=== PATIENT | male | born 1955 | race Hispanic/Latino ===

== ENCOUNTER → 2017-03-31 | Day surgery (SDC) | payer MEDICARE, MEDICAID ==
[~2017-03-31] MED LIST: Bupivacaine 0.5% Inj(30mL) ONE; Bupivacaine-Epi 0.25%-1:200,000 PF Inj ONE; HYDROmorphone 0.5 mg/0.5 ml ISec IVP PRN; Lactated Ringer's 1,000 ML IV ONE; Lidocaine 1% Inj (20ml) ONE; Lidocaine Hydrochloride 5 ML INJ ONE; Morphine 4 MG/ML VIAL ONE; Neostigmine Methylsulfate 3mg/3ml Syringe IV ONE; Propofol 10 mg/ml Inj (20 ML) ONE; Rocuronium 10 mg/ml (5 ml) ONE; Sodium Chloride 0.9% 0 ML IV ONE; ceFAZolin IV 2 gm in Dextrose 1 GM/50 ML BAG IVPB ONE
--- NOTE | 2017-03-31 11:54 | PCM.SURG1 ---
Surgeon's Initial Post Op Note - Surgeon's Notes Surgeon: Dr. Pace Race Car Mechanic: Dr. Pam Yanez PGY2 Type of Anesthesia: General Endo Pre-Operative Diagnosis: umbilical hernia, diastasis Operative Findings: see dictation Post-Operative Diagnosis: same Operation Performed: Robotic unbilical hernia and diastasis repair w/ mesh. laparoscopic TAP block Specimen/Specimens Removed: umbilical hernia contents, peritoneal fat Estimated Blood Loss: EBL {In ML}: 5 Blood Products Given: N/A Drains Used: No Drains Post-Op Condition: Good Date of Surgery/Procedure: 03/31/17 Time of Surgery/Procedure: 08:00
[2017-03-31 15:19] VITALS: BP 116/64; PULSE 80; RESP 15; TEMP 97.6; O2SAT 96
--- NOTE | 2017-04-03 02:19 | OP ---
PROCEDURE DATE: 03/31/2017 PREOPERATIVE DIAGNOSES: 1. Umbilical hernia. 2. Diastasis of recti. 3. Morbid obesity. POSTOPERATIVE DIAGNOSES: PROCEDURES DONE: 1. Robotic umbilical hernia repair with a mesh. 2. Robotic repair of diastasis of recti with mesh. 3. Laparoscopic transabdominal peritoneal block bilateral. SURGEON: Luis Eduardo Pace MD ASSISTANTS: NOMAN Dunlap and Jacqueline Orozco, PGY-2 resident. TYPE OF ANESTHESIA: General endotracheal tube anesthesia. ESTIMATED BLOOD LOSS: Around 20 mL. DRAIN: None. PATHOLOGY: 1. Umbilical hernia content and sack was sent to the pathology. 2. Preperitoneal fat from the diastasis was sent to the pathology. COMPLICATIONS: None. INTREOPERATIVE FINDINGS: The patient had approximately 3 x 3 cm umbilical hernia as well as 15 cm long diastasis of recti of approximately 4 cm wide. DESCRIPTION OF PROCEDURE: On intraoperative steps, this is a 61-year-old male was diagnosed with umbilical hernia as well as diastasis recti and the patient was consented for robotic umbilical hernia repair with the mesh as well as robotic diastasis of recti repair, brought to the OR, and placed supine on the operating table. After induction of the anesthesia, the abdomen was prepped and draped in usual sterile fashion. The left upper quadrant incision was made, using visiport technique peritoneal cavity was entered. The Pneumo was created. Another three 8 mm robotic ports were placed in left upper quadrant, left lower quadrant, and left flank and now on the right side two ports were placed of 12 mm as well as 5 mm. Robot was brought in, camera arm as well as arm 1 and arm 2 were docked and first lysis of reduction was done. There was minimal amount of omentum attached and hernial content is therefore reduced back into the peritoneal cavity and it was sent to the table for pathology. Now the diastasis of recti was measured and it was approximately 4 cm wide. The peritoneum and preperitoneal fat was dissected from the diastasis and #1 Prolene V-loc suture was used to repair the umbilical hernia defect in two layer and the diastasis wall also repaired with the plication technique in a two layer and after proper repair of diastasis as well as umbilical hernia, the large 28 x 12 cm mesh was implanted and the mesh was sutured to peritoneum and the part of the mesh was also tacked with a tacker and after proper implantation of the mesh the laparoscopic bilateral transabdominal preperitoneal block was given for the postoperative anesthesia and after that all the ports were taken out under vision and the 12 mm port was closed in two layers, the fascia with a 0 Vicryl interrupted sutures, skin with a 4-0 Monocryl, and at all port sites dry sterile dressing was applied. The patient tolerated the procedure well. Count of the instruments was correct. There was no apparent complication. Luis Eduardo Pace MD MTDD
== END | disposition home or self-care (01) ==
LOC: C.SDS 06:24
PROVIDERS: ATTEND Surgery Surgical Critical Care
DX: K42.9 Umbilical hernia without obstruction or gangrene (principal); E66.01 Morbid (severe) obesity due to excess calories; Q79.59 Other congenital malformations of abdominal wall
CPT/HCPCS: 22999; 49652; 82948; 88302; 88305; J0690; J1170; J1885; J2270; J2405; J2704; J2710; J2765; J3010; J7120; S2900

== ENCOUNTER 2017-07-04 16:59 | Emergency (ER) | payer MEDICARE, MEDICAID ==
[2017-07-04 17:50] VITALS: BMI 32.0
[2017-07-04 17:55] VITALS: BP 130/84; PULSE 82; RESP 18; TEMP 98.5; O2SAT 99
--- NOTE | 2017-07-04 18:47 | C.PDOC ---
History Of Present Illness 62 y/o male c/o cough x 4 days, no chest pain, no fever or chills, no shortness or breath. also c/o itchy throat. Time Seen by Provider: 07/04/17 17:52 Chief Complaint (Nursing): ENT Problem Past Medical History Vital Signs: Last Vital Signs Temp 98.5 F 07/04/17 17:52 Pulse 82 07/04/17 17:52 Resp 18 07/04/17 17:52 BP 130/84 07/04/17 17:52 Pulse Ox 99 07/06/17 10:56 - Medical History PMH: GERD, HTN, Hyperlipidemia, Hypothyroidism Denies: Diabetes, Hepatitis Surgical History: Tonsillectomy Family History: States: Unknown Family Hx - Social History Hx Alcohol Use: No Hx Substance Use: No Physical Exam - Physical Exam Appears: Non-toxic, No Acute Distress Skin: Warm, Dry Head: Atraumatic, Normacephalic Eye(s): bilateral: Normal Inspection Tongue: Normal Appearing Lips: Normal Appearing Gingiva: Normal Appearing Throat: No Erythema, No Exudate Neck: Supple Lymphatic: No Adenopathy Chest: Symmetrical, No Deformity, No Tenderness Cardiovascular: Rhythm Regular, No Murmur Respiratory: No Decreased Breath Sounds, No Accessory Muscle Use, No Rales, Rhonchi (scattered), No Wheezing Neurological/Psych: Oriented x3, Normal Speech, Normal Cognition ED Course And Treatment O2 Sat by Pulse Oximetry: 99 Medical Decision Making Medical Decision Making: pt with cough with white sputum, no acute changes on cxr. d/c with zithromax Disposition Counseled Patient/Family Regarding: Studies Performed, Diagnosis, Need For Followup, Rx Given - Disposition Referrals: Prasanna Diaz MD [Staff Provider] - Disposition: HOME/ ROUTINE Disposition Time: 20:04 Condition: STABLE Additional Instructions: Take antibiotics as prescribed. Follow up with your doctor in a few days. Return to ER for any worse symptoms. Instructions: Acute Bronchitis (ED) Forms: General Discharge Instructions, [facility] (Turkmen) - Clinical Impression Clinical Impression: Bronchitis
[2017-07-04 19:21] LABS: BARBITURATES, UR NEGATIVE (NEGATIVE); BENZODIAZEPINES, UR NEGATIVE (NEGATIVE); OPIATES, UR NEGATIVE (NEGATIVE); PHENCYCLIDINE, UR NEGATIVE (NEGATIVE)
--- NOTE | 2017-07-05 10:09 | RAD ---
HISTORY: cough, rhonchi bilateral bases COMPARISON: Chest radiographs 03/07/2017. TECHNIQUE: Chest PA and lateral FINDINGS: LUNGS: No active pulmonary disease. PLEURA: No significant pleural effusion identified. No pneumothorax apparent. CARDIOVASCULAR: Normal. OSSEOUS STRUCTURES: No significant abnormalities. VISUALIZED UPPER ABDOMEN: Normal. OTHER FINDINGS: None. IMPRESSION: No interval acute cardiopulmonary disease appreciated.
== END 2017-07-04 20:12 | disposition home or self-care (01) ==
LOC: C.ER 16:59
DX: J40 Bronchitis, not specified as acute or chronic (principal)
CPT/HCPCS: 71046; 99283; G0480

== ENCOUNTER 2017-07-05 09:50 | Inpatient (IN) | payer MEDICARE, MEDICAID ==
[2017-07-05 09:50] VITALS: BMI 32.0
[2017-07-05] MEDS ORDERED: cefTRIAXone IV 1 gm in Dextros 50 ML IV ONE (11:27)
--- NOTE | 2017-07-05 11:34 | C.PDOC ---
History Of Present Illness 62 y/o male with PMHx of schizophrenia presents to ED sent by Dr. Diaz for admission for pneumonia. Patient reports coughing with wheezing and states he was recently seen by Dr. Diaz who advised he come to ED for hospital admission. Patient denies fever, chills, chest pain, sob, nausea, abdominal pain or any other complaints at this time. Time Seen by Provider: 07/05/17 10:39 Chief Complaint (Nursing): Medical Clearance History Per: Patient History/Exam Limitations: no limitations Onset/Duration Of Symptoms: Days Current Symptoms Are (Timing): Still Present Reports Recently: Seen In ED Recent travel outside of the [place]: No Additional History Per: Prior Records (caregiver) Past Medical History Reviewed: Historical Data, Nursing Documentation, Vital Signs Vital Signs: Last Vital Signs Temp 98.5 F 07/05/17 10:03 Pulse 83 07/05/17 10:03 Resp 18 07/05/17 10:03 BP 126/75 07/05/17 10:03 Pulse Ox 96 07/05/17 14:14 - Medical History PMH: Benign Prostatic Hyperplasia, GERD, HTN, Hyperlipidemia, Hypothyroidism, Schizophrenia Surgical History: Tonsillectomy Family History: States: No Known Family Hx - Social History Hx Alcohol Use: No Hx Substance Use: No - Immunization History Hx Tetanus Toxoid Vaccination: No Hx Influenza Vaccination: No Hx Pneumococcal Vaccination: No Review Of Systems Constitutional: Negative for: Fever, Chills Cardiovascular: Negative for: Chest Pain Respiratory: Positive for: Cough, Sputum, Wheezing. Negative for: Shortness of Breath Gastrointestinal: Negative for: Nausea, Vomiting Skin: Negative for: Rash Physical Exam - Physical Exam Appears: Non-toxic Skin: Normal Color, Warm, Dry, No Rash Head: Atraumatic, Normacephalic Eye(s): bilateral: Normal Inspection Oral Mucosa: Moist Throat: Normal, No Erythema, No Exudate Neck: Supple Cardiovascular: Rhythm Regular Respiratory: No Rales, Rhonchi (Bilateral), Wheezing Gastrointestinal/Abdominal: Soft, No Tenderness, No Guarding, No Rebound Extremity: No Pedal Edema, Capillary Refill (<2 seconds) Neurological/Psych: Oriented x3 ED Course And Treatment - Laboratory Results Result Diagrams: 07/05/17 11:32 07/05/17 11:32 Lab Interpretation: No Acute Changes ECG: Interpreted By Me ECG Rhythm: Sinus Rhythm Rate From EC O2 Sat by Pulse Oximetry: 96 (RA) Pulse Ox Interpretation: Normal - Radiology CXR: Viewed By Me, Read By Radiologist CXR Interpretation: Yes: Infiltrates Progress Note: Treated with IVF NSS, duoneb x 3 and solumedrol. Treated with zithromax and rocephin IV. Case discussed with Dr Diaz who request admission Reassessment Condition: Improved - Physician Consult Information Physician Contacted: Prasanna Diaz Outcome Of Conversation: admit Medical Decision Making Medical Decision Making: Plan: ECG, CXR, Blood work, UA, Neb treatment ordered Disposition Discussed With Dr.: Prasanna Diaz Doctor Will See Patient In The: Hospital - Disposition Disposition: HOSPITALIZED Disposition Time: 13:10 Condition: STABLE - POA Present On Arrival: None - Clinical Impression Clinical Impression: Pneumonia - PA / COOLING ROOM ATTENDANT / Resident Statement MD/DO has reviewed & agrees with the documentation as recorded. - Scribe Statement The provider has reviewed the documentation as recorded by the Scribe Todd Flores All medical record entries made by the Scribe were at my direction and personally dictated by me. I have reviewed the chart and agree that the record accurately reflects my personal performance of the history, physical exam, medical decision making, and the department course for this patient. I have also personally directed, reviewed, and agree with the discharge instructions and disposition. Decision To Admit - Pt Status Changed To: Hospital Disposition Of: Inpatient - Admit Certification Admit to Inpatient:: After my assessment, the patient will require hospitalization for at least two midnights. This is because of the severity of symptoms shown, intensity of services needed, and/or the medical risk in this patient being treated as an outpatient. - InPatient: Physician Admission Certification: I certify that this patient requires 2 or more midnights of care for the following reason:: Pneumonia - . Bed Request Type: Regular Admitting Physician: Prasanna Diaz Patient Diagnosis: Pneumonia
[2017-07-05 11:35] LABS: BASO % 0.9 % (0.0-2.0); HEMOGLOBIN 12.1 g/dL (12.0-18.0); LYMPH # 1.3 K/uL (1.0-4.3); LYMPH % 28.6 % (20.0-40.0); MEAN CELL VOLUME 91.8 fL (80.0-94.0); MEAN CORPUSCULAR HEMOGLOBIN 30.8 pg (27.0-31.0); MEAN CORPUSCULAR HGB CONC 33.6 g/dL (33.0-37.0); MEAN PLATELET VOLUME 7.8 fL (7.2-11.7); MONO # 0.7 K/uL (0.0-0.8); MONO % 16.3 % (0.0-10.0); NEUT # 2.4 K/uL (1.8-7.0); NEUT % 53.2 % (50.0-75.0); NRBC % 0.1 % (0.0-2.0); RBC 3.92 Mil/uL (4.40-5.90); RED CELL DISTRIBUTION WIDTH 13.2 % (11.5-14.5); WHITE BLOOD COUNT 4.4 K/uL (4.8-10.8)
[2017-07-05] MEDS ORDERED: Albuterol-Ipratrop 3 mg / 0.5 (3 ml) UD ONE (11:42)
[2017-07-05] MEDS ORDERED: Sodium Chloride 0.9% 1,000 ML ONE (11:43)
[2017-07-05] MEDS: Albuterol-Ipratrop 3 mg / 0.5 (3 ml) UD IH SCH ×3 (11:45→12:03)
[2017-07-05] MEDS: Sodium Chloride 0.9% 1,000 ML IV SCH ×2 (11:45→22:56)
[2017-07-05 11:54] LABS: ALBUMIN 3.7 g/dL (3.5-5.0); ALT/SGPT 21 U/L (21-72); AST/SGOT 32 U/L (17-59); BLOOD UREA NITROGEN 16 mg/dL (9-20); GFR AFRICAN-AMERICAN > 60; GFR NON-AFRICAN AMERICAN > 60; LIPASE 31 U/L (23-300)
[2017-07-05 11:59] LABS: URINE BILIRUBIN NEGATIVE (NEGATIVE); URINE BLOOD NEGATIVE (NEGATIVE); URINE CLARITY Clear (Clear); URINE COLOR Yellow (YELLOW); URINE GLUCOSE (UA) NORMAL (Normal); URINE HYALINE CAST 0-2 /lpf (0-2); URINE LEUKOCYTE ESTERASE NEG Leu/uL (Negative); URINE NITRATE NEGATIVE (NEGATIVE); URINE PROTEIN NEGATIVE (NEGATIVE)
[2017-07-05] MEDS ORDERED: Azithromycin 500 MG in Sodium Chloride 0.9% 250 ML IVPB ONE (12:30)
--- NOTE | 2017-07-05 12:31 | RAD ---
HISTORY: SOB COMPARISON: Chest x-ray performed 07/04/17 TECHNIQUE: Chest PA and lateral FINDINGS: Examination limited by habitus. LUNGS: Medial right lower lobe atelectasis/infiltrate. Please note that chest x-ray has limited sensitivity for the detection of pulmonary masses. PLEURA: No significant pleural effusion identified. No definite pneumothorax . CARDIOVASCULAR: Mild cardiomegaly. OSSEOUS STRUCTURES: Degenerative changes of the spine including confluent anterior osteophyte formation. VISUALIZED UPPER ABDOMEN: Unremarkable. OTHER FINDINGS: None. IMPRESSION: Medial right lower lobe atelectasis/infiltrate. Mild cardiomegaly.
[2017-07-05] MEDS ORDERED: MethylPREDNISolone 40 mg Vial IVP STA (13:05)
[2017-07-05 14:25] VITALS: RESP 20
[2017-07-05] MEDS ORDERED: Potassium Chloride 20 mEq ER Tab PO ONE (18:30)
[2017-07-05] MEDS: MethylPREDNISolone 40 mg Vial IV SCH (19:37)
[2017-07-05] MEDS: Acetylcysteine 20% Inhal Soln (4ml) INH SCH (19:59)
[2017-07-05] MEDS: Albuterol-Ipratrop 3 mg / 0.5 (3 ml) UD INH SCH (20:01)
[2017-07-05] MEDS: QUEtiapine 200 mg XR Tab PO SCH (21:33)
[2017-07-05] MEDS: Divalproex 500 mg ER Tab PO SCH (21:33)
[2017-07-05] MEDS: Rosuvastatin Calcium 2.5 mg Tab PO SCH (21:33)
[2017-07-05] MEDS: guaiFENesin DM 100 mg-10 mg/5 ml UD PO SCH ×2 (22:51→22:54)
--- NOTE | 2017-07-06 00:59 | CARD ---
APPROVED REPORT EKG Measurement Heart [id number] <Conclusion> Normal sinus rhythm Minimal voltage criteria for LVH, may be normal variant Borderline ECG
[2017-07-06] MEDS: Albuterol-Ipratrop 3 mg / 0.5 (3 ml) UD INH SCH ×4 (01:36→19:55)
[2017-07-06] MEDS: Acetylcysteine 20% Inhal Soln (4ml) INH SCH ×4 (01:36→19:55)
[2017-07-06] MEDS: MethylPREDNISolone 40 mg Vial IV SCH ×3 (02:38→20:02)
[2017-07-06] MEDS: Levothyroxine 125 MCG TAB PO SCH (05:57)
[2017-07-06] MEDS: guaiFENesin DM 100 mg-10 mg/5 ml UD PO SCH ×3 (05:57→21:47)
[2017-07-06] MEDS: Sodium Chloride 0.9% 1,000 ML IV SCH (07:02)
--- NOTE | 2017-07-06 08:33 | HP ---
HISTORY OF PRESENT ILLNESS: This is a 62-year-old male with longstanding psychiatric history, was evaluated in my office on the day prior to admission for respiratory distress. The patient was found to be in pulmonary congestion as well as scattered rhonchi. The patient was sent to Emergency Room for evaluation and he was admitted for further management. The patient admits that he has cough with expectoration of white sputum. The patient had an x-ray done in the Emergency Room that was found to have bilateral lower lobe infiltration. REVIEW OF SYSTEMS: Other review of systems negative. ALLERGIES: NO KNOWN ALLERGIES. MEDICATIONS: As per MAR. PAST MEDICAL HISTORY: Benign prostate hypertrophy, hypertension, hypercholesterolemia, longstanding psychiatric history, hypothyroidism. SOCIAL HISTORY: He is a smoker half pack a day. No EtOH or substance abuse. FAMILY HISTORY: Noncontributory. PHYSICAL EXAMINATION: GENERAL: Patient is in bed, in mild distress. VITAL SIGNS: Blood pressure 129/76, temperature 98.1, respiratory rate 20, pulse 73. HEENT: Pupils equal, reactive to light. Normal appearing mucosa of the conjunctivae, oropharynx and nasal membrane mucosa. NECK: Supple. No JVD. No carotid bruit. No lymph nodes. No thyromegaly. CHEST AND LUNGS: Bilateral symmetrical expansion. Good air exchange. Patient has bilateral scattered rhonchi all over lung keen as well as coarse rales, change with cough. CARDIOVASCULAR SYSTEM: PMI not localized. S1 and S2. No additional sounds. ABDOMEN: Normoactive bowel sounds. No tenderness. No organomegaly. No masses. EXTREMITIES: No cyanosis, no clubbing, no edema. CENTRAL NERVOUS SYSTEM: Alert, awake, oriented x2. No neurological deficit could be appreciated. ASSESSMENT: 1. Bilateral pneumonia. 2. Hyperactive airways with bronchospasm. Differential diagnosis include the post respiratory tract infection hyperactive airway verus congestive heart failure. 3. Hypothyroidism. 4. Hypertension. PLAN: We will do echocardiogram and start the patient on Lasix, bronchodilators, steroid as well as IV antibiotics. Resume patient's home medications. Jalen MD Joe
[2017-07-06] MEDS: Vitamin B Complex/Vitamin C Tab PO SCH (09:23)
[2017-07-06] MEDS: Pantoprazole 40 mg EC Tab PO SCH (09:23)
[2017-07-06] MEDS ORDERED: Azithromycin 500mg/250ML NS 500 MG/250 ML BAG IVPB SCH (12:00)
[2017-07-06] MEDS: Azithromycin 500 MG in Sodium Chloride 0.9% 250 ML IVPB SCH (12:31)
[2017-07-06] MEDS: Rosuvastatin Calcium 2.5 mg Tab PO SCH (21:46)
[2017-07-06] MEDS: Divalproex 500 mg ER Tab PO SCH (21:46)
[2017-07-06] MEDS: QUEtiapine 200 mg XR Tab PO SCH (21:47)
--- NOTE | 2017-07-07 00:53 | PN ---
DATE: 07/06/2017 DAILY PROGRESS NOTE SUBJECTIVE: The patient is seen today 07/06/2017. He has decreased shortness of breath, but he still has cough. Patient is on Lasix and he had an echocardiogram done. OBJECTIVE: VITAL SIGNS: Blood pressure 146/61, temperature 97.2, respiratory rate 20 and pulse 72. HEENT: Pupils equal, reactive to light. Normal-appearing mucosa of the conjunctivae, oropharynx and nasal membrane mucosa. NECK: Supple. No JVD. No carotid bruit. No lymph node. No thyromegaly. CHEST AND LUNGS: Bilateral symmetrical expansion. Good air exchange. No rales. No rhonchi. CARDIOVASCULAR SYSTEM: PMI not localized. S1, S2. No additional sounds. ABDOMEN: Normoactive bowel sounds. No tenderness. No organomegaly. No masses. EXTREMITIES: No cyanosis, no clubbing, no edema. BRIM CUTTER: Alert, awake, oriented x2. No neurological deficit could be appreciated. ASSESSMENT: Bilateral pneumonia and hyperactive airways with bronchospasm, rule out congestive heart failure; hypothyroidism; and hypertension. PLAN: Follow echocardiogram results. Continue Lasix as well as bronchodilators and steroids and antibiotics. We will give patient also Robitussin DM 5 mL three times a day. Prasanna Diaz MD
[2017-07-07] MEDS: Albuterol-Ipratrop 3 mg / 0.5 (3 ml) UD INH SCH ×4 (02:46→20:52)
[2017-07-07] MEDS: Acetylcysteine 20% Inhal Soln (4ml) INH SCH ×4 (02:47→20:52)
[2017-07-07] MEDS: MethylPREDNISolone 40 mg Vial IV SCH ×3 (02:59→19:35)
[2017-07-07] MEDS: guaiFENesin DM 100 mg-10 mg/5 ml UD PO SCH ×3 (06:04→21:32)
[2017-07-07] MEDS: Levothyroxine 125 MCG TAB PO SCH (06:04)
[2017-07-07] MEDS: Pantoprazole 40 mg EC Tab PO SCH (09:52)
[2017-07-07] MEDS: Vitamin B Complex/Vitamin C Tab PO SCH (09:52)
[2017-07-07] MEDS ORDERED: Pneumococcal 23-Valent Vaccine IM ONE (10:00)
[2017-07-07] MEDS ORDERED: Influenza Vaccine 60 mcg/0.5 mL SYR (4YR UP) IM ONE (10:00)
[2017-07-07] MEDS: Azithromycin 500 MG in Sodium Chloride 0.9% 250 ML IVPB SCH (11:57)
[2017-07-07] MEDS: QUEtiapine 200 mg XR Tab PO SCH (21:31)
[2017-07-07] MEDS: Rosuvastatin Calcium 2.5 mg Tab PO SCH (21:31)
[2017-07-07] MEDS: Divalproex 500 mg ER Tab PO SCH (21:33)
--- NOTE | 2017-07-07 22:13 | PN ---
DATE: 07/06/2017 SUBJECTIVE: The patient is seen today, 07/06/2017. He is not in any cardiopulmonary distress. PHYSICAL EXAMINATION: VITAL SIGNS: Blood pressure 136/71, temperature 97.8, respiratory rate 20, and pulse 84. HEENT: Pupils equal, reactive to light. Normal-appearing mucosa of the conjunctivae, oropharynx, and nasal membrane mucosa. NECK: Supple. No JVD. No carotid bruit. No lymph node. No thyromegaly. CHEST AND LUNGS: Bilateral symmetrical expansion. Good air exchange. No rales. No rhonchi. CARDIOVASCULAR SYSTEM: PMI not localized. S1 and S2. No additional sounds. ABDOMEN: Normoactive bowel sounds. No tenderness. No organomegaly. No masses. EXTREMITIES: No cyanosis. No clubbing. No edema. CENTRAL NERVOUS SYSTEM: Alert, awake, oriented x2. No neurological deficits could be appreciated. ASSESSMENT: 1. Bilateral pneumonia. 2. Hyperactive airway disease. 3. Rule out congestive heart failure. 4. Hypothyroidism. 5. Hypertension. PLAN: Continue current antibiotics and management. Prasanna Diaz MD
[2017-07-08] MEDS: Acetylcysteine 20% Inhal Soln (4ml) INH SCH ×4 (01:53→19:04)
[2017-07-08] MEDS: MethylPREDNISolone 40 mg Vial IV SCH ×3 (03:48→19:32)
[2017-07-08] MEDS: Albuterol-Ipratrop 3 mg / 0.5 (3 ml) UD INH SCH ×4 (04:16→19:04)
[2017-07-08] MEDS: guaiFENesin DM 100 mg-10 mg/5 ml UD PO SCH ×3 (05:48→21:22)
[2017-07-08] MEDS: Levothyroxine 125 MCG TAB PO SCH (05:49)
[2017-07-08] MEDS: Vitamin B Complex/Vitamin C Tab PO SCH (09:23)
[2017-07-08] MEDS: Potassium Chloride 20 mEq ER Tab PO SCH (09:23)
[2017-07-08] MEDS: Pantoprazole 40 mg EC Tab PO SCH (09:23)
[2017-07-08] MEDS: Azithromycin 500 MG in Sodium Chloride 0.9% 250 ML IVPB SCH (11:12)
[2017-07-08] MEDS: Rosuvastatin Calcium 2.5 mg Tab PO SCH (21:21)
[2017-07-08] MEDS: QUEtiapine 200 mg XR Tab PO SCH (21:21)
--- NOTE | 2017-07-09 00:58 | PN ---
DATE: SUBJECTIVE: Patient continued to improved respiratory marte. PHYSICAL EXAMINATION: VITAL SIGNS: With blood pressure 149/76, temperature 97.6, respiratory rate 20, and pulse 75. HEENT: Pupils equal, reactive to light. Normal-appearing mucosa of the conjunctivae, oropharynx, and nasal membrane mucosa. NECK: Supple. No JVD. No carotid bruit. No lymph node. No thyromegaly. CHEST AND LUNGS: Bilateral symmetrical expansion. Good air exchange. No rales, no rhonchi. CARDIOVASCULAR SYSTEM: PMI not localized. S1 and S1. No additional sounds. ABDOMEN: Normoactive bowel sounds. No tenderness. No organomegaly. No masses. EXTREMITIES: No cyanosis, no clubbing, no edema. CENTRAL NERVOUS SYSTEM: Alert, awake, oriented x2. No neurological deficit could be appreciated. ASSESSMENT: 1. Bilateral pneumonia. 2. Hyperactive airway disease with bronchospasm. PLAN: We will decrease steroids to 20 mg every 8 hours and continue current IV antibiotics. Follow up echo report. [facility] MD Joe
[2017-07-09] MEDS: Acetylcysteine 20% Inhal Soln (4ml) INH SCH ×6 (01:21→19:25)
[2017-07-09] MEDS: Albuterol-Ipratrop 3 mg / 0.5 (3 ml) UD INH SCH ×5 (01:21→19:25)
[2017-07-09] MEDS: guaiFENesin DM 100 mg-10 mg/5 ml UD PO SCH ×3 (05:12→21:49)
[2017-07-09] MEDS: Levothyroxine 125 MCG TAB PO SCH (05:36)
[2017-07-09] MEDS: Pantoprazole 40 mg EC Tab PO SCH (10:20)
[2017-07-09] MEDS: Vitamin B Complex/Vitamin C Tab PO SCH (10:20)
[2017-07-09] MEDS: Potassium Chloride 20 mEq ER Tab PO SCH (10:20)
[2017-07-09] MEDS: Azithromycin 500 MG in Sodium Chloride 0.9% 250 ML IVPB SCH (12:00)
[2017-07-09] MEDS: Rosuvastatin Calcium 2.5 mg Tab PO SCH (21:48)
[2017-07-09] MEDS: QUEtiapine 200 mg XR Tab PO SCH (21:49)
[2017-07-09] MEDS: Divalproex 500 mg ER Tab PO SCH (21:50)
--- NOTE | 2017-07-09 23:00 | CARD ---
APPROVED REPORT EXAM: Two-dimensional and M-mode echocardiogram with Doppler and color Doppler. Other Information Quality : GoodRhythm : INDICATION Congestive Heart Failure RISK FACTORS Hypertension Hyperlipidemia 2D DIMENSIONS IVSd1.1 (0.7-1.1cm)LVDd5.0 (3.9-5.9cm) PWd1.2 (0.7-1.1cm)LVDs3.4 (2.5-4.0cm) FS (%) 32.6 %LVEF (%)60.7 (>50%) M-Mode DIMENSIONS Left Atrium (MM)4.69 (2.5-4.0cm)Aortic Root3.78 (2.2-3.7cm) Aortic Cusp Exc.2.60 (1.5-2.0cm) Mitral Valve MV E Qhfgbxcu25.0cm/sMV A Vexytgvk02.8cm/sE/A ratio0.8 TDI E/Lateral E'0.0E/Medial E'0.0 Tricuspid Valve TR Peak Mnmbtsqz002er/sTR Peak Gr.[id number] LEFT VENTRICLE The left ventricle is normal size. There is normal left ventricular wall thickness. The left ventricular function is normal. The left ventricular ejection fraction is within the normal range. There is normal LV segmental wall motion. Transmitral Doppler flow pattern is Grade I-abnormal relaxation pattern. No left ventricle thrombus noted on this study. There is no ventricular septal defect visualized. There is no left ventricular aneurysm. There is no mass noted in the left ventricle. RIGHT VENTRICLE The right ventricle is normal size. There is normal right ventricular wall thickness. The right ventricular systolic function is normal. ATRIA The left atrium size is normal. The right atrium size is normal. The interatrial septum is intact with no evidence for an atrial septal defect. AORTIC VALVE The aortic valve is mildly sclerotic. There is trace aortic regurgitation. There is no aortic valvular stenosis. There is no aortic valvular vegetation. MITRAL VALVE The mitral valve is normal in structure and function. There is no evidence of mitral valve prolapse. There is no mitral valve stenosis. Mitral regurgitation is trace. TRICUSPID VALVE The tricuspid valve is normal in structure and function. There is mild tricuspid regurgitation. There is no tricuspid valve prolapse or vegetation. There is no tricuspid valve stenosis. PULMONIC VALVE The pulmonary valve is normal in structure and function. There is trace to mild pulmonic valvular regurgitation. There is no pulmonic valvular stenosis. GREAT VESSELS The aortic root is normal in size. The ascending aorta is normal in size. The IVC is normal in size and collapses >50% with inspiration. PERICARDIAL EFFUSION The pericardium appears normal. There is no pleural effusion. <Conclusion> The left ventricular ejection fraction is within the normal range. The left ventricular function is normal. Transmitral Doppler flow pattern is Grade I-abnormal relaxation pattern. The aortic valve is mildly sclerotic. There is trace aortic regurgitation. Mitral regurgitation is trace. There is mild tricuspid regurgitation. There is trace to mild pulmonic valvular regurgitation.
[2017-07-10] MEDS: Acetylcysteine 20% Inhal Soln (4ml) INH SCH ×4 (01:40→19:56)
[2017-07-10] MEDS: Albuterol-Ipratrop 3 mg / 0.5 (3 ml) UD INH SCH ×4 (01:40→19:56)
[2017-07-10] MEDS: Levothyroxine 125 MCG TAB PO SCH (05:44)
[2017-07-10] MEDS: guaiFENesin DM 100 mg-10 mg/5 ml UD PO SCH ×3 (05:44→22:21)
[2017-07-10] MEDS: Potassium Chloride 20 mEq ER Tab PO SCH (10:12)
[2017-07-10] MEDS: Pantoprazole 40 mg EC Tab PO SCH (10:13)
[2017-07-10] MEDS: Vitamin B Complex/Vitamin C Tab PO SCH (10:13)
[2017-07-10] MEDS: Azithromycin 500 MG in Sodium Chloride 0.9% 250 ML IVPB SCH (12:14)
[2017-07-10] MEDS ORDERED: Albuterol-Ipratrop 3 mg / 0.5 (3 ml) UD INH STA (12:31)
[2017-07-10 16:58] LABS: BASO % 0.3 % (0.0-2.0); EOS % 0.2 % (0.0-4.0); HEMOGLOBIN 13.6 g/dL (12.0-18.0); LYMPH # 1.5 K/uL (1.0-4.3); LYMPH % 10.9 % (20.0-40.0); MEAN CELL VOLUME 91.1 fL (80.0-94.0); MEAN CORPUSCULAR HEMOGLOBIN 30.6 pg (27.0-31.0); MEAN CORPUSCULAR HGB CONC 33.5 g/dL (33.0-37.0); MEAN PLATELET VOLUME 8.7 fL (7.2-11.7); MONO # 1.7 K/uL (0.0-0.8); MONO % 11.7 % (0.0-10.0); NEUT # 10.8 K/uL (1.8-7.0); NEUT % 76.9 % (50.0-75.0); RBC 4.45 Mil/uL (4.40-5.90); RED CELL DISTRIBUTION WIDTH 13.7 % (11.5-14.5); WHITE BLOOD COUNT 14.1 K/uL (4.8-10.8)
[2017-07-10 17:36] LABS: ALBUMIN 3.6 g/dL (3.5-5.0); ALT/SGPT 155 U/L (21-72); AST/SGOT 70 U/L (17-59); BLOOD UREA NITROGEN 35 mg/dL (9-20); CALCIUM 8.7 mg/dl (8.6-10.4); GFR AFRICAN-AMERICAN > 60; GFR NON-AFRICAN AMERICAN > 60
[2017-07-10] MEDS: QUEtiapine 200 mg XR Tab PO SCH (22:21)
[2017-07-10] MEDS: Divalproex 500 mg ER Tab PO SCH (22:22)
[2017-07-10] MEDS: Rosuvastatin Calcium 2.5 mg Tab PO SCH (22:22)
--- NOTE | 2017-07-10 22:28 | PN ---
DATE: 07/10/2017 SUBJECTIVE: Patient is seen today on 07/10/2017. He is still in mild respiratory distress with wheezing. PHYSICAL EXAMINATION: VITAL SIGNS: Blood pressure is 112/69, temperature 97.9, respiratory rate 20, and pulse 67. HEENT: Pupils equal, reactive to light. Normal-appearing mucosa of the conjunctivae, oropharynx, and nasal membrane mucosa. NECK: Supple. No JVD. No carotid bruit. No lymph node. No thyromegaly. CHEST AND LUNGS: Bilateral symmetrical expansion. Good air exchange. No rales. No rhonchi. CARDIOVASCULAR SYSTEM: PMI not localized. S1 and S2. No additional sounds. ABDOMEN: Normoactive bowel sounds. No tenderness. No organomegaly. No masses. EXTREMITIES: No cyanosis. No clubbing. No edema. CENTRAL NERVOUS SYSTEM: Alert, awake, oriented x2. No neurological deficits could be appreciated. ASSESSMENT: 1. Pneumonia. 2. Hyperactive airways with bronchospasm. 3. Hypertension. PLAN: Continue current medications and we will monitor blood work. We will order blood work today and continue current antibiotics. Prasanna Diaz MD
[2017-07-11] MEDS: Acetylcysteine 20% Inhal Soln (4ml) INH SCH ×3 (02:18→13:49)
[2017-07-11] MEDS: guaiFENesin DM 100 mg-10 mg/5 ml UD PO SCH ×2 (06:02→14:29)
[2017-07-11] MEDS: Levothyroxine 125 MCG TAB PO SCH (06:05)
[2017-07-11] MEDS: Vitamin B Complex/Vitamin C Tab PO SCH (10:45)
[2017-07-11] MEDS: Pantoprazole 40 mg EC Tab PO SCH (10:46)
[2017-07-11 11:29] LABS: BASO % 0.2 % (0.0-2.0); EOS # 0.1 K/uL (0.0-0.7); EOS % 0.5 % (0.0-4.0); HEMOGLOBIN 13.3 g/dL (12.0-18.0); LYMPH % 13.2 % (20.0-40.0); MEAN CELL VOLUME 91.3 fL (80.0-94.0); MEAN CORPUSCULAR HEMOGLOBIN 30.5 pg (27.0-31.0); MEAN CORPUSCULAR HGB CONC 33.3 g/dL (33.0-37.0); MEAN PLATELET VOLUME 8.5 fL (7.2-11.7); MONO # 1.6 K/uL (0.0-0.8); NEUT # 11.2 K/uL (1.8-7.0); NEUT % 75.1 % (50.0-75.0); RBC 4.38 Mil/uL (4.40-5.90); RED CELL DISTRIBUTION WIDTH 13.4 % (11.5-14.5); WHITE BLOOD COUNT 14.9 K/uL (4.8-10.8)
[2017-07-11 11:46] LABS: ALB/GLOB RATIO 0.9 (1.0-2.1); ALBUMIN 3.4 g/dL (3.5-5.0); ALT/SGPT 116 U/L (21-72); AST/SGOT 40 U/L (17-59); BLOOD UREA NITROGEN 32 mg/dL (9-20); CALCIUM 8.7 mg/dl (8.6-10.4); GFR AFRICAN-AMERICAN > 60; GFR NON-AFRICAN AMERICAN > 60
[2017-07-11] MEDS ORDERED: Influenza Vaccine 60 mcg/0.5 mL SYR (4YR UP) IM ONE (14:00)
[2017-07-11 16:11] VITALS: BP 126/74; PULSE 88; TEMP 97.4; O2SAT 95
--- NOTE | 2017-07-12 05:20 | DS ---
REASON FOR ADMISSION: This is a 62-year-old male with history of multiple medical problems, was admitted for right middle lobe pneumonia with exacerbation of COPD. COURSE OF HOSPITALIZATION: Patient was admitted to medical floor and he was started on IV antibiotics as well as IV steroids and bronchodilators by nebulizers. Patient's symptoms remarkably improved and patient was discharged home to continue the expectorant as well as Advair 250/50 one puff twice a day and to continue his current medications. FINAL DIAGNOSES: Exacerbation of chronic obstructive pulmonary disease, smoker, pneumonia, hypothyroidism, hypertension, benign prostate hypertrophy. [facility] MD Joe
== END 2017-07-11 21:35 | disposition home or self-care (01) | DRG 190 ==
LOC: C.ER 09:50 → C.9E 13:04 → C.3T 15:59
PROVIDERS: ADMIT Internal Medicine; ATTEND Internal Medicine
DX: J44.0 Chronic obstructive pulmonary disease with (acute) lower respiratory infection (principal); J18.9 Pneumonia, unspecified organism; E78.5 Hyperlipidemia, unspecified; J98.01 Acute bronchospasm; J44.1 Chronic obstructive pulmonary disease with (acute) exacerbation; K21.9 Gastro-esophageal reflux disease without esophagitis; E03.9 Hypothyroidism, unspecified; E78.00 Pure hypercholesterolemia, unspecified; F17.200 Nicotine dependence, unspecified, uncomplicated; F20.9 Schizophrenia, unspecified; I10 Essential (primary) hypertension; N40.0 Benign prostatic hyperplasia without lower urinary tract symptoms; Z79.51 Long term (current) use of inhaled steroids

== ENCOUNTER 2017-10-30 10:07 | Emergency (ER) | payer MEDICARE, MEDICAID ==
[2017-10-30 10:07] VITALS: BMI 32.0
[2017-10-30 10:29] VITALS: RESP 20; TEMP 97.4
[2017-10-30] MEDS ORDERED: Albuterol-Ipratrop 3 mg / 0.5 (3 ml) UD INH STA ×2 (11:56→13:55)
--- NOTE | 2017-10-30 12:35 | C.PDOC ---
History Of Present Illness 62 y/o male presents to the ER complaining of cough and SOB which has been present for the past 1 week. Patient states that he also has baseline depression. Patient reports that he has not been evaluated and treated by a PMD. Patient denies having fever and CP. Time Seen by Provider: 10/30/17 11:49 Chief Complaint (Nursing): Cough, Cold, Congestion History Per: Patient History/Exam Limitations: no limitations Onset/Duration Of Symptoms: Days Current Symptoms Are (Timing): Still Present Severity: Moderate Past Medical History Reviewed: Historical Data, Nursing Documentation, Vital Signs Vital Signs: Last Vital Signs Temp 97.4 F L 10/30/17 10:22 Pulse 96 H 10/30/17 10:22 Resp 20 10/30/17 10:22 BP 144/89 10/30/17 10:22 Pulse Ox 99 10/30/17 12:40 - Medical History PMH: Arthritis (KNEES'), Benign Prostatic Hyperplasia, GERD, HTN, Hyperlipidemia , Hypothyroidism, Schizophrenia Denies: Diabetes, Hepatitis Surgical History: Tonsillectomy Family History: States: No Known Family Hx - Social History Hx Alcohol Use: No Hx Substance Use: No - Immunization History Hx Tetanus Toxoid Vaccination: No Hx Influenza Vaccination: No Hx Pneumococcal Vaccination: No Review Of Systems Except As Marked, All Systems Reviewed And Found Negative. Constitutional: Negative for: Fever, Chills Cardiovascular: Negative for: Chest Pain Respiratory: Positive for: Cough, Shortness of Breath Physical Exam - Physical Exam Appears: Non-toxic, No Acute Distress, Other (bizarre, flat affect) Skin: Normal Color, Warm, Dry Head: Atraumatic, Normacephalic Eye(s): bilateral: Normal Inspection Ear(s): Bilateral: Normal Nose: Normal Oral Mucosa: Moist Throat: Normal, No Erythema, No Exudate Neck: Supple Chest: Symmetrical Cardiovascular: Rhythm Regular Respiratory: No Rales, Rhonchi (scattered rhonchi bilaterally), Wheezing ( scattered wheezing bilaterally) Extremity: Normal ROM, No Pedal Edema Neurological/Psych: Oriented x3, Normal Speech ED Course And Treatment - Laboratory Results Result Diagrams: 10/30/17 13:00 10/30/17 13:00 O2 Sat by Pulse Oximetry: 99 (RA) Pulse Ox Interpretation: Normal Medical Decision Making Medical Decision Making: Plan: --Labs --ECG --UA --CXR --Albuterol --Nebulizer schizophrenic @ the care home. lungs cleared with ED tx. continue MDI and opt f/u with PMD quit smoking. Disposition Doctor Will See Patient In The: Office Counseled Patient/Family Regarding: Studies Performed, Diagnosis - Disposition Disposition: HOME/ ROUTINE Disposition Time: 13:58 Condition: GOOD Forms: [facility] (Belizean) - Clinical Impression Clinical Impression: Viral bronchitis - Scribe Statement The provider has reviewed the documentation as recorded by the Aime Whaley Provider Attestation: All medical record entries made by the Deshaunibe were at my direction and personally dictated by me. I have reviewed the chart and agree that the record accurately reflects my personal performance of the history, physical exam, medical decision making, and the department course for this patient. I have also personally directed, reviewed, and agree with the discharge instructions and disposition.
--- NOTE | 2017-10-30 12:51 | RAD ---
HISTORY: SOB COMPARISON: 07/05/2017. TECHNIQUE: Chest PA and lateral FINDINGS: LUNGS: There may be some minor residual chronic atelectasis or scarring change right medial lung base. PLEURA: No significant pleural effusion identified. No pneumothorax apparent. CARDIOVASCULAR: Cardiomegaly. OSSEOUS STRUCTURES: Mild multilevel degenerative spondylosis of the thoracic spine. . Minor chronic anterior stature loss of a few upper/mid thoracic segments. VISUALIZED UPPER ABDOMEN: Normal. OTHER FINDINGS: None. IMPRESSION: There may be some minor residual chronic atelectasis or scarring change right medial lung base.
[2017-10-30] MEDS ORDERED: Albuterol-Ipratrop 3 mg / 0.5 (3 ml) UD ONE (13:00)
[2017-10-30 13:15] LABS: MONO # 1.1 K/uL (0.0-0.8); NRBC % 0.1 % (0.0-2.0)
[2017-10-30 13:28] LABS: BASO % 0.5 % (0.0-2.0); EOS % 0.2 % (0.0-4.0); HEMOGLOBIN 13.2 g/dL (12.0-18.0); LYMPH % 25.3 % (20.0-40.0); MEAN CELL VOLUME 92.2 fL (80.0-94.0); MEAN CORPUSCULAR HGB CONC 34.7 g/dL (33.0-37.0); MEAN PLATELET VOLUME 8.7 fL (7.2-11.7); MONO % 27.4 % (0.0-10.0); NEUT # 1.8 K/uL (1.8-7.0); NEUT % 46.6 % (50.0-75.0); RBC 4.12 Mil/uL (4.40-5.90); RED CELL DISTRIBUTION WIDTH 14.1 % (11.5-14.5)
[2017-10-30 13:30] LABS: ALB/GLOB RATIO 1.1 (1.0-2.1); ALBUMIN 3.5 g/dL (3.5-5.0); ALT/SGPT 15 U/L (21-72); AST/SGOT 33 U/L (17-59); BLOOD UREA NITROGEN 26 mg/dL (9-20); CALCIUM 8.6 mg/dl (8.6-10.4); GFR AFRICAN-AMERICAN > 60; GFR NON-AFRICAN AMERICAN 51
[2017-10-30 13:32] LABS: PLATELET COUNT 83 K/uL (130-400); WHITE BLOOD COUNT 3.9 K/uL (4.8-10.8)
[2017-10-30 13:36] LABS: B-TYPE NATRIURETIC PEPTIDE 157 pg/mL (0-900)
[2017-10-30 13:52] LABS: BANDS 5 % (0-2); LYMPHOCYTE 30 % (20-40); MONOCYTE 28 % (0-10); NEUTROPHIL 37 % (50-75); PLATELET ESTIMATE NORMAL (NORMAL); TOTAL CELLS COUNTED 100
[2017-10-30] MEDS ORDERED: guaiFENesin 100 mg/5 ml Syrup UD PO STA (13:59)
[2017-10-30] MEDS ORDERED: guaiFENesin 100 mg/5 ml Syrup UD ONE (14:28)
[2017-10-30 14:46] VITALS: BP 133/72; PULSE 74; O2SAT 95
== END 2017-10-30 14:45 | disposition home or self-care (01) ==
LOC: C.ER 10:07
DX: J20.8 Acute bronchitis due to other specified organisms (principal); E78.5 Hyperlipidemia, unspecified; I10 Essential (primary) hypertension; E03.9 Hypothyroidism, unspecified; F20.9 Schizophrenia, unspecified
CPT/HCPCS: 71046; 80053; 83880; 84484; 85025; 87804; 96374; 99285; J2930

== ENCOUNTER 2018-08-31 08:59 | Emergency (ER) | payer MEDICARE, MEDICAID | END 2018-08-31 12:02 | disposition home or self-care (01) | LOC: C.ER 08:59 ==

== ENCOUNTER 2018-09-01 08:55 | Emergency (ER) | payer MEDICARE, MEDICAID ==
[2018-09-01 08:55] VITALS: BMI 32.0
[2018-09-01 09:00] VITALS: RESP 18
--- NOTE | 2018-09-01 09:45 | C.PDOC ---
History Of Present Illness 63 y/o male with hx of schizophrenia, lives in alf, comes to ED today for problems 'with his nerves'. pt requesting to have a chiropractor 'hook them together'. pt sts he recently had mri of lumbar and cervial spine and has not yet followed up with Dr Chan. Pt has no acute pain now. no hi,si or ah. pt seems fixated on 'his nerves'. pt seen yesterday for similar situation, was seen by crisis team and discharged. Time Seen by Provider: 09/01/18 09:04 Chief Complaint (Nursing): Back Pain History/Exam Limitations: no limitations Onset/Duration Of Symptoms: Unknown Quality Of Discomfort: Other (nerves bothering him) Previous Symptoms: Back Pain, Neck Pain Associated Symptoms: denies: New Weakness, New Numbness Past Medical History Reviewed: Historical Data, Nursing Documentation, Vital Signs Vital Signs: Last Vital Signs Temp 97.4 F L 09/01/18 08:58 Pulse 87 09/01/18 08:58 Resp 18 09/01/18 08:58 BP 135/80 09/01/18 08:58 Pulse Ox 95 09/01/18 08:58 - Medical History PMH: Arthritis (KNEES'), Benign Prostatic Hyperplasia, GERD, HTN, Hyperlipidemia, Hypothyroidism, Schizophrenia Denies: Diabetes, Hepatitis Surgical History: Tonsillectomy Family History: States: Unknown Family Hx - Social History Hx Alcohol Use: No Hx Substance Use: No - Immunization History Hx Tetanus Toxoid Vaccination: No Hx Influenza Vaccination: No Hx Pneumococcal Vaccination: No Review Of Systems Constitutional: Negative for: Fever, Chills Cardiovascular: Negative for: Chest Pain Respiratory: Negative for: Cough Musculoskeletal: Positive for: Neck Pain, Back Pain Skin: Negative for: Rash Neurological: Negative for: Weakness, Numbness Physical Exam - Physical Exam Appears: Non-toxic, No Acute Distress Skin: Warm, Dry Head: Atraumatic, Normacephalic Oral Mucosa: Moist Neck: No Midline Cervical Tenderness, Other (kyphotic posture) Respiratory: No Decreased Breath Sounds, No Wheezing Gastrointestinal/Abdominal: Soft, No Tenderness Extremity: Normal ROM, No Tenderness, No Calf Tenderness, No Swelling Extremity: Bilateral: Atraumatic Neurological/Psych: Oriented x3, Normal Speech, Normal Cognition, Normal Motor, Normal Sensation ED Course And Treatment O2 Sat by Pulse Oximetry: 95 Medical Decision Making Medical Decision Making: pt with psychiatric issues, lives in alf, has kyphosis, c/o 'nerve problems. no acute issues medical or psychiatric noted at this time, pt advised to f/u with Dr Chan to review recent chester of ls and cervical spine. Disposition Counseled Patient/Family Regarding: Diagnosis, Need For Followup - Disposition Referrals: Prasanna Diaz MD [Staff Provider] - Stevo Chan MD [Staff Provider] - Disposition: HOME/ ROUTINE Disposition Time: 09:55 Condition: GOOD Additional Instructions: Please follow up with Dr Chan to review the results of your recent MRI tests and discuss your nerve problems. Return to ER for any worse symptoms. Instructions: Kyphosis in Adults Forms: [facility] (Slovenian), General Discharge Instructions - Clinical Impression Clinical Impression: Kyphosis
[2018-09-01 10:06] VITALS: BP 140/82; PULSE 83; TEMP 97.7
[2018-09-01 16:28] VITALS: O2SAT 95
== END 2018-09-01 10:05 | disposition home or self-care (01) ==
LOC: C.ER 08:55
DX: M40.209 Unspecified kyphosis, site unspecified (principal)